=== PATIENT | female | born 1995 | race Caucasian/White ===

== ENCOUNTER 2022-04-29 09:58 | Emergency (ER) | payer MEDICAID ==
[~2022-04-29] VITALS: Ht 167.6 cm; Wt 84.8 kg
[2022-04-29 10:00] VITALS: BP_SYST 110
--- NOTE | 2022-04-29 10:00 | NUR ---
BROUGHT BACK TO BED #7 VIA WHEELCHAIR, PLACED IN BED AND TRIAGED. REPORT GIVEN TO ALTAGRACIA
[2022-04-29] MEDS ORDERED: KETOROLAC TROMETHAMINE 60 MG/2 ML VIAL IM ONE (10:15)
--- NOTE | 2022-04-29 10:45 | NUR ---
31 yo male with withdrawal symptoms. Pt with history of Fentanyl use. Pt states he last used 48 hours ago. Pt with fever,chills, nausea and vomiting. Pt denies chest pain or SOB. Pt with body aches. Pt describes sharp constant 9/10 pain throughout his body. Pt without treatment for pain.
[2022-04-29] MEDS ORDERED: IBUP-1971 PO (10:51)
[2022-04-29] MEDS ORDERED: HYDR-3917 PO (10:51)
--- NOTE | 2022-04-29 10:55 | NUR ---
ER at bedside examining patient.
--- NOTE | 2022-04-29 11:22 | NUR ---
Placed a short-leg posterior splint. PMSC 2+ intact.
--- NOTE | 2022-04-29 11:23 | NUR ---
Pt. teaching on use of crutches, demostrated and pt. returned demostration.
--- NOTE | 2022-04-29 11:55 | NUR ---
Patient given written and verbal discharge instructions and verbalizes understanding. ER MD discussed with patient the results and treatment provided. Patient in stable condition. ID arm band removed. Rx of Dell and Motrin given. Patient educated on pain management and to follow up with PMd. Opportunity for questions provided and answered. Medication side effect fact sheet provided.
[2022-04-29 14:47] VITALS: BP_SYST 110
== END 2022-04-29 11:55 | disposition home or self-care (01) ==
LOC: SED 09:58
DX: S92.351A Displaced fracture of fifth metatarsal bone, right foot, initial encounter for closed fracture (principal); R11.0 Nausea; F12.90 Cannabis use, unspecified, uncomplicated; Z79.899 Other long term (current) drug therapy; X58.XXXA Exposure to other specified factors, initial encounter; Y93.89 Activity, other specified; Y92.89 Other specified places as the place of occurrence of the external cause; Y99.8 Other external cause status
CPT/HCPCS: 99283; 29515; 73630; 96372; J1885

== ENCOUNTER 2022-10-11 16:10 | Emergency (ER) | payer MEDICAID ==
[~2022-10-11] VITALS: Ht 162.6 cm; Wt 81.6 kg
[~2022-10-11 16:10] MED LIST: HYDR-3917 PO; IBUP-1971 PO
[2022-10-11 16:45] VITALS: BP_SYST 136; PULSE 85; RESP 22; TEMP 98.3; O2SAT 98
[2022-10-11 17:22] LABS: CALCIUM 8.9 mg/dL (8.4-11.0); CREATININE 0.78 mg/dL (0.55-1.30)
[2022-10-11 17:23] LABS: BILIRUBIN,URINE NEGATIVE (NEGATIVE); BLOOD, URINE NEGATIVE (NEGATIVE); COLOR,URINE YELLOW (YELLOW); GLUCOSE,URINE NEGATIVE (NEGATIVE); KETONES,URINE TRACE (NEGATIVE); LEUKOCYTE ESTERASE ,URINE NEGATIVE (NEGATIVE); NITRITE, URINE NEGATIVE (NEGATIVE); PROTEIN URINE TRACE (NEGATIVE); UROBILINOGEN,URINE 0.2 (0.2-1.0)
[2022-10-11 17:27] LABS: ALBUMIN 4.1 g/dL (3.4-4.8); TOTAL BILIRUBIN 0.3 mg/dL (0.0-1.0)
[2022-10-11 17:49] LABS: BASOPHILS % (AUTO) 0.3 % (0.0-2.0); EOSINOPHILS # (AUTO) 0.1 K/uL (0.0-0.4); EOSINOPHILS % (AUTO) 1.5 % (0.0-4.0); HEMOGLOBIN 13.8 g/dL (12.0-16.0); LYMPHOCYTES # (AUTO) 3.7 K/uL (1.0-5.5); LYMPHOCYTES % (AUTO) 46.4 % (20.5-51.5); MEAN CORPUSCULAR HEMOGLOBIN 30 pg (27-31); MEAN CORPUSCULAR HGB CONC 33 % (32-36); MEAN CORPUSCULAR VOLUME 90 fL (79.0-98.0); MONOCYTES # (AUTO) 0.4 K/uL (0.0-1.0); MONOCYTES % (AUTO) 4.7 % (1.7-9.3); NEUTROPHILS # (AUTO) 3.8 K/uL (1.8-7.7); NEUTROPHILS % (AUTO) 47.1 % (40.0-70.0); PLATELET COUNT (AUTO) 318 K/uL (130-430); RED BLOOD CELL COUNT(AUTO) 4.66 MIL/uL (4.2-6.2); RED CELL DISTRIBUTION WIDTH 13.5 % (9.0-15.0); WHITE BLOOD COUNT (AUTO) 8.1 K/uL (4.8-10.8)
[2022-10-11 18:02] LABS: CLARITY/URINE HAZY (CLEAR)
[2022-10-11 18:12] LABS: BACTERIA,URINE MANY /HPF (None Seen); RBC,URINE 0-3 /HPF (0-3); URINE AMORPHOUS PHOSPHATES 1+ /HPF (None Seen); WBC,URINE NONE SEEN /HPF (0-3)
[2022-10-11] MEDS ORDERED: KETOROLAC TROMETHAMINE 15 MG VIAL IVP ONE (19:00)
== END 2022-10-11 20:47 | disposition left against medical advice (07) ==
LOC: SED 16:10
DX: R10.31 Right lower quadrant pain (principal); R50.9 Fever, unspecified; R11.0 Nausea; Z79.899 Other long term (current) drug therapy
CPT/HCPCS: 99285; 96374; 76856; 80053; 81000; 85025; 36415; 81025; J1885

== ENCOUNTER 2023-02-14 09:20 | Emergency (ER) | payer MEDICAID ==
[~2023-02-14] VITALS: Ht 167.6 cm; Wt 93.0 kg
[2023-02-14 09:20] VITALS: BP_SYST 109; PULSE 73; RESP 18; TEMP 97.8; O2SAT 99
[2023-02-14 11:48] VITALS: BP_SYST 114; PULSE 59; RESP 17; TEMP 97.6; O2SAT 98
== END 2023-02-14 11:45 | disposition home or self-care (01) ==
LOC: SED 09:20
DX: S00.83XA Contusion of other part of head, initial encounter (principal); Z79.899 Other long term (current) drug therapy; W01.0XXA Fall on same level from slipping, tripping and stumbling without subsequent striking against object, initial encounter; Y93.89 Activity, other specified; Y92.89 Other specified places as the place of occurrence of the external cause; Y99.8 Other external cause status
CPT/HCPCS: 70486-TC; 76376; 81025; 99284